=== PATIENT | female | born 1950 | race Two or more races ===

== ENCOUNTER 2022-09-14 16:29 | Emergency (ER) | payer MEDICARE, OTHER ==
[~2022-09-14] VITALS: Ht 157.5 cm; Wt 61.2 kg
--- NOTE | 2022-09-14 16:53 | NUR ---
C/O HEAD, RIGHT SHOULDER, WRIST PAIN S/P SLIP AND FALL WHILE WALKING.PT DENIES LOC.
[2022-09-14] MEDS ORDERED: TDAP [DIPH/PERTUSSIS/TET] 0.5 ML VIAL IM ONE ×2 (17:00→17:25)
[2022-09-14] MEDS ORDERED: ACETAMINOPHEN 325 MG TABLET PO ONE (17:00)
[2022-09-14] MEDS ORDERED: ACETAMINOPHEN 325 MG TABLET ONE (17:25)
[2022-09-14] MEDS ORDERED: IBUP-1953 PO (19:40)
--- NOTE | 2022-09-14 19:55 | NUR ---
Patient discharged to home in stable condition. Written and verbal after care instructions given. Patient verbalizes understanding of instruction.
[2022-09-14 20:08] VITALS: BP 140/74
== END 2022-09-14 20:09 | disposition home or self-care (01) ==
LOC: ER 16:48
DX: S00.11XA Contusion of right eyelid and periocular area, initial encounter (principal); Z60.2 Problems related to living alone; Z79.899 Other long term (current) drug therapy; W01.0XXA Fall on same level from slipping, tripping and stumbling without subsequent striking against object, initial encounter; Y93.89 Activity, other specified; Y92.89 Other specified places as the place of occurrence of the external cause; Y99.8 Other external cause status
CPT/HCPCS: 70450-TC; 70486-TC; 90715